=== PATIENT | female | born 1990 | race African-American/Black ===

== ENCOUNTER 2017-03-09 11:14 | Emergency (ER) | payer OTHER ==
[~2017-03-09 11:14] MED LIST: AZIT250T PO; GUAI118L13 PO; IBUP200C PO; MULT-107 PO
[2017-03-09 12:24] VITALS: BP 127/95
--- NOTE | 2017-03-09 12:40 | RAD ---
Indication injury, pain. AP oblique and lateral views of the right foot were obtained. Some soft tissue swelling over the dorsum of the foot is noted. No acute bony finding is seen
--- NOTE | 2017-03-09 12:47 | PHYS DOC ---
General Chief Complaint: FOOT INJURY PAIN Stated Complaint: SWOLLEN FOOT Time Seen by MD: 11:16 Source: patient Exam Limitations: no limitations Problems: History of Present Illness Initial Comments Pt is 26/F to ED with two complaints. Pt states 2 days ago she accidentally dropped a hand weight to dorsal right foot. States she's had pain/swelling, ambulatory no numbness/tingling/weakness/ radiating sx. Pt also has small tender "pimple" right lateral neck, her son here as well with MRSA skin infection. No fever/chills/n/v/d/cp/sob Td UTD. Onset: other (2 days) Severity: moderate Pain/Injury Location: right foot Method of Injury: direct blow Modifying Factors: worse with jarring, worse with movement, improves with rest Allergies: Coded Allergies: No Known Drug Allergies (Unverified , 12/05/13) Past Medical History Medical History: no pertinent history Surgical History: noncontributory, other Social History Smoker: non-smoker Alcohol: none Drugs: none Review of Systems Constitutional: denies diaphoresis, denies fever, denies malaise Respiratory: denies cough, denies shortness of breath Cardiovascular: denies chest pain, denies syncope Gastrointestinal: denies diarrhea, denies nausea, denies vomiting Genitourinary: denies dysuria, denies frequency, denies hematuria Musculoskeletal: see HPI Skin: see HPI Psychiatric/Neurological: denies headache, denies numbness, denies paresthesia Physical Exam General Appearance: no apparent distress HEENT: normal ENT inspection Neck: supple (small 0.5cm tender "pimple" c/w early MRSA) Cardiovascular/Respiratory: normal peripheral pulses, no respiratory distress Back: no CVA tenderness, no vertebral tenderness Feet: right foot other (TTP/bruising some soft tissue swelling dorsal mid foot no palpable bony deformity no skin breaks) Neurologic/Tendon: normal sensation, normal motor functions, normal tendon functions, responds to pain, no evidence tendon injury Psychiatric: alert, oriented x 3 Skin: normal color, warm/dry (neck lesion as above) Orders, Labs, Meds PATIENT: KADE FLORES ACCOUNT: [id number] : 1990 LOCATION: ER AGE: 26 SEX: F EXAM STATUS: REG ER ORD. PHYSICIAN: SUSANNE HELTON DO REASON: trauma/pain PROCEDURE: FOOT RIGHT 3V Indication injury, pain. AP oblique and lateral views of the right foot were obtained. Some soft tissue swelling over the dorsum of the foot is noted. No acute bony finding is seen DICTATED AND SIGNED BY: YFN ETIENNE MD DATE: 03/09/17 1234 CC: Tirso CRAWFORD MD; SUSANNE HELTON DO ~ Departure Time of Disposition: 12:51 Disposition: 01 HOME, SELF-CARE Diagnosis: Right foot contusion, MRSA Condition: GOOD Patient Instructions: MRSA Overview, RICE - Routine Care for Injuries, Easy-to- Read Additional Instructions: Wear post-op shoe as needed for comfort. RICE, see handout. Rx: tylenol #3 (15), bactrim ds, bactroban OTC ibuprofen for baseline pain. Take meds with food. Follow up with your doctor in 1-2 weeks for recheck. Return to ED with new or changing symptoms. SUSANNE HELTON DO Mar 09, 2017 12:47
[2017-03-09] MEDS ORDERED: ACET-704 PO (12:55)
[2017-03-09] MEDS ORDERED: MUPI15CR TP (12:55)
[2017-03-09] MEDS ORDERED: SULF1TAB24 PO (12:55)
== END 2017-03-09 13:02 | disposition home or self-care (01) ==
LOC: ER 11:19
DX: S90.31XA Contusion of right foot, initial encounter (principal); A49.02 Methicillin resistant Staphylococcus aureus infection, unspecified site; W20.8XXA Other cause of strike by thrown, projected or falling object, initial encounter; Y93.89 Activity, other specified; Y99.8 Other external cause status; Y92.89 Other specified places as the place of occurrence of the external cause
CPT/HCPCS: 73630; 99284

== ENCOUNTER 2017-06-16 07:26 | Emergency (ER) | payer OTHER ==
[~2017-06-16] VITALS: Ht 170.2 cm; Wt 99.8 kg
[~2017-06-16 07:26] MED LIST changes: +ACET-704 PO; -IBUP200C PO; +IBUP200C6 PO; +MUPI15CR TP; +SULF1TAB24 PO
[2017-06-16] MEDS ORDERED: VANCOMYCIN PER PHARMACY MC PRN (07:45)
[2017-06-16] MEDS ORDERED: PIP/TAZO PER PHARMACY MC PRN (07:45)
[2017-06-16 08:05] LABS: BASO % 0 % (0-3); EOS # 0.1 x10^3/uL (0.0-0.7); EOS % 1 % (0-3); HEMATOCRIT 34.4 % (36.0-47.0); HEMOGLOBIN 11.2 g/dL (12.0-15.5); LYMPH # 1.4 x10^3/uL (1.0-4.8); LYMPH % 11 % (24-48); MEAN CORPUSCULAR HEMOGLOBIN 27 pg (25-35); MEAN CORPUSCULAR HGB CONC 33 g/dL (31-37); MEAN CORPUSCULAR VOLUME 84 fL (79-100); MONO # 1.3 x10^3/uL (0.0-1.1); MONO % 10 % (0-9); NEUT # 9.7 x10^3uL (1.8-7.7); NEUT % 78 % (31-73); PLATELET COUNT 297 x10^3/uL (140-400); RED BLOOD COUNT 4.11 x10^6/uL (3.50-5.40); RED CELL DISTRIBUTION WIDTH 14.2 % (11.5-14.5); WHITE BLOOD COUNT 12.4 x10^3/uL (4.0-11.0)
--- NOTE | 2017-06-16 08:10 | PHYS DOC ---
Past History Past Medical History: No Pertinent History Past Surgical History: Smoking: Cigarettes Alcohol Use: None Drug Use: None Adult General Chief Complaint Chief Complaint: TOOTH ACHE OR PAIN HPI HPI 18-year-old female presenting to the emergency department with right sided jaw swelling and pain over the past 3 or 4 days. She describes the pain as a throbbing constant pain that is worse when she opens her mouth and associated with swelling. She denies any fevers at home. She denies any other symptoms. Review of systems is negative for chest pain shortness of breath fevers chills nausea vomiting. All other review of systems is negative unless otherwise noted in history of present illness. ED course: 18-year-old female presenting to the emergency department with swelling and jaw pain on the right. He has vital signs afebrile with mild tachycardia otherwise chronic hypertension present. Pertinent physical exam shows the patient had significant swelling on the right side of the jaw including the submandibular region. She has mild elevation of the tongue. She is swallowing her secretions without difficulty in the examination room room and is without stridor. She does have trismus on opening of her mouth. Otherwise the remainder the exam is unremarkable. I discussed the case with Dr. Carver our oral maxillofacial surgeon. The patient was then transferred to [facility] for admission for IV antibiotics and surgical intervention. Review of Systems Review of Systems See above Current Medications Current Medications Current Medications Medications (Trade) Dose Ordered Sig/Sedrick Start Time Stop Time Status Last Admin Dose Admin Ampicillin Sodium/ Sulbactam Sodium 3 gm/Sodium Chloride 100 ml @ 200 mls/hr 1X ONCE 06/16/17 08:00 06/16/17 08:29 UNV Dexamethasone Sodium Phosphate (Decadron) 10 mg 1X ONCE 06/16/17 08:15 06/16/17 08:16 UNV Piperacillin Sod/ Tazobactam Sod (Zosyn Per Pharmacy) 1 each PRN DAILY PRN 06/16/17 07:45 06/16/17 08:03 DC Piperacillin Sod/ Tazobactam Sod 4.5 gm/Sodium Chloride 50 ml @ 100 mls/hr 1X ONCE 06/16/17 08:15 06/16/17 08:44 Cancel Vancomycin HCl (Vanco Per Pharmacy) 1 each PRN DAILY PRN 06/16/17 07:45 06/16/17 08:03 DC Vancomycin HCl 2 gm/Sodium Chloride 500 ml @ 250 mls/hr 1X ONCE 06/16/17 08:30 06/16/17 10:29 Cancel Allergies Allergies Allergies Coded Allergies Type Severity Reaction Last Updated Verified No Known Drug Allergies 12/05/13 No Physical Exam Physical Exam Constitutional: Well developed, well nourished, breathing comfortably. able to tolerate secretions. HENT: Normocephalic, atraumatic, bilateral external ears normal, oropharynx moist, no oral exudates, nose normal. Eyes: PERRLA, EOMI, conjunctiva normal, no discharge. [] Neck: Normal range of motion. Cardiovascular:Heart rate regular rhythm, no murmur [] Lungs & Thorax: Bilateral breath sounds clear to auscultation [] Abdomen: Bowel sounds normal, soft, no tenderness, no masses, no pulsatile masses. [] Skin: Warm, dry, no erythema, no rash. [] Back: No tenderness, no CVA tenderness. [] Extremities: No tenderness, no cyanosis, no clubbing, ROM intact, no edema. [] Neurologic: Alert and oriented X 3, normal motor function, normal sensory function, no focal deficits noted. [] Psychologic: Affect normal, judgement normal, mood normal. [] Current Patient Data Vital Signs Vital Signs Date Time Temp Pulse Resp B/P (MAP) Pulse Ox O2 Delivery O2 Flow Rate FiO2 06/16/17 07:47 99.1 98 18 98 Room Air EKG EKG [] Radiology/Procedures Radiology/Procedures [] Course & Med Decision Making Course & Med Decision Making Pertinent Labs and Imaging studies reviewed. (See chart for details) [] Dragon Disclaimer Dragon Disclaimer This chart was dictated in whole or in part using Voice Recognition software in a busy, high-work load, and often noisy Emergency Department environment. It may contain unintended and wholly unrecognized errors or omissions. Departure Departure: Impression: Primary Impression: Dental abscess Disposition: ADMITTED INPATIENT Admitting Physician: Other (termulo) Condition: STABLE Referrals: Tirso CRAWFORD MD (PCP) ALEXA UPTON MD Jun 16, 2017 08:10
[2017-06-16 08:11] LABS: PREG TEST PT QUAL NEGATIVE (NEG)
[2017-06-16 08:15] LABS: ALBUMIN 3.3 g/dL (3.4-5.0); CALCIUM 8.9 mg/dL (8.5-10.1); CREATININE 0.7 mg/dL (0.6-1.0); DIRECT BILIRUBIN 0.1 mg/dL (0.0-0.2); GFR 120.6; TOTAL BILIRUBIN 0.4 mg/dL (0.2-1.0); TOTAL PROTEIN 7.9 g/dL (6.4-8.2)
[2017-06-16] MEDS ORDERED: PIPERACILLIN/TAZOBACTAM 4.5 GM in IV NORMAL SALINE 50ML 50 ML IV ONE (08:15)
[2017-06-16] MEDS ORDERED: AMPICILLIN/SULBACTAM 3 GM in IV NORMAL SALINE 100ML 100 ML IV ONE (08:15)
[2017-06-16] MEDS ORDERED: IV NORMAL SALINE 500ML 500 ML ONE (08:18)
[2017-06-16] MEDS ORDERED: HYDROmorphone PF 1 MG/ML DISP.SYRIN IV ONE (08:30)
[2017-06-16] MEDS ORDERED: ONDANSETRON PF 4 MG/2 ML VIAL. IV ONE (08:30)
[2017-06-16] MEDS ORDERED: DEXAMETHASONE SOD PHOS 10 MG/ML VIAL IV ONE (08:30)
[2017-06-16] MEDS ORDERED: VANCOMYCIN 2 GM in IV NORMAL SALINE 500ML 500 ML IV ONE (08:30)
[2017-06-16] MEDS ORDERED: POTASSIUM CHLORIDE 20MEQ 100 ML IV ONE (08:30)
[2017-06-16] MEDS ORDERED: IV NORMAL SALINE 500ML 500 ML IV ONE (08:30)
[2017-06-16] MEDS ORDERED: IOHEXOL 300 MG/ML 75 ML VIAL. IV ONE (09:00)
[2017-06-16] MEDS: HYDROmorphone PF 1 MG/ML DISP.SYRIN IV PRN ×3 (09:07→10:40)
--- NOTE | 2017-06-16 09:44 | RAD ---
CT of the neck with contrast, 06/16/2017: History: Right-sided swelling, possible dental abscess Multidetector CT imaging was performed following an IV bolus injection of iodinated contrast material. There are numerous dental caries present bilaterally. There are prominent periapical lucencies related to several of these teeth bilaterally compatible with periapical infection. Artifacts arising from dental fillings partially degrade image quality at the level of mouth. There is extensive subcutaneous edema in the right lower cheek and submandibular regions, right greater than left. There are mildly prominent submandibular lymph nodes, more so on the right. There is an ill-defined area of decreased density adjacent to the medial aspect of the right mandible posteriorly extending inferiorly and posteriorly at the right mandibular angle. This process measures approximately 1 x 1.5 x 2.5 cm. There is a gas bubble within this process. The findings are compatible with a abscess, presumably dental related. There is mild upper cervical adenopathy on the right with the largest node measuring 15 x 25 mm. The parotid glands show no intrinsic abnormality. No airway narrowing is seen. The laryngeal region is unremarkable. The thyroid gland shows no abnormality. IMPRESSION: 1. Severe dental disease. 2. An ill-defined fluid collection at the angle of the mandible on the right suggests a dental related abscess with moderate adjacent subcutaneous edema in the right cheek and submandibular regions and mild right upper cervical adenopathy. PQRS Compliance Statement: One or more of the following individualized dose reduction techniques were utilized for this examination: 1. Automated exposure control 2. Adjustment of the mA and/or kV according to patient size 3. Use of iterative reconstruction technique
--- NOTE | 2017-06-16 09:46 | PDOC1 ---
History and Physicial CC/HPI 26 yof presents with 2 day swelling of right neck with complaint of pain from wisdom tooth that fractured PMH Unremarkable Meds: MVI daily All: NKDA SH denies drug/tob/alcohol use PE/ EOMI B PERRLA 2mm NC/AT PAMELA 18mm FROM tongue ++Tenderness FOM on right MP III ++ tenderness right neck edema and induration 6x6cm grossly carious multiple teeth, # 30, 32 occlusion stable repeatable RAD CT Neck demonstrates approximately 3cm fluid collection right inf mandible and medial mandible with soft tissue changes associated A/P 26 yof with right neck / lateral pharyngeal / right submandibular / massticator space infection appears to be likely associated with carious and fractured teeth # 30 & 32 Plan admit to hospitalist to assist with inpatient management and transfer to [facility] and book for OR tonight for percutaneous drainage and extraction of 30 & 32 Keep NPO until after surgery IV Unasyn for ABX coverage is preference Problems: (1) Dental abscess CARD,NEERU Cabrera DMD Jun 16, 2017 09:46
[2017-06-16] MEDS ORDERED: IV NORMAL SALINE 1,000ML 1,000 ML IV ONE (10:30)
[2017-06-16 10:52] VITALS: BP 141/93
== END 2017-06-16 11:19 | disposition other institution (70) ==
LOC: ER 07:26
DX: K04.7 Periapical abscess without sinus (principal); I10 Essential (primary) hypertension; F17.210 Nicotine dependence, cigarettes, uncomplicated
CPT/HCPCS: 36415; 70491; 80048; 80076; 83605; 83690; 84703; 85027; 96361; 96365; 96375; 96376; 99285; J0295; J1100; J1170; J2405; J3480; J7040; J7030

== ENCOUNTER 2018-05-12 00:55 | Emergency (ER) | payer OTHER ==
[~2018-05-12] VITALS: Ht 149.9 cm; Wt 92.6 kg
[2018-05-12 01:38] VITALS: BP 131/93
[2018-05-12] MEDS ORDERED: OXYMETAZOLINE 0.05% NASAL SPRAY 15ML BOTTLE. NS ONE (02:00)
--- NOTE | 2018-05-12 04:12 | ED.ADGEN ---
Past History Past Medical History: No Pertinent History Past Surgical History: Smoking: Cigarettes Alcohol Use: None Drug Use: None Adult General Chief Complaint Chief Complaint Dizziness HPI HPI Patient is a 27-year-old Afro-[place] female presents with dizziness, nasal congestion, cough rhinorrhea while at work. 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 Patient and proceeded to go to the break room and rest and increase fluids. She was instructed by her coworkers go to the ED to be evaluated. Symptoms resolved prior to ED arrival. No headache, palpitation, chest pain, shortness of breath. Does report nasal congestion, rhinorrhea, difficulty breathing. Nasal passages. No medications or therapy sticking prior to ED arrival., Patient's initial 2 blood pressure readings were elevated. Patient feeling less anxious prior to discharge with improved breathing. Patient has not seen a PCP in a number of years. Patient is not currently sexually active and denies possibility of .[] Review of Systems Review of Systems ROS as per HPI. ] All other systems were reviewed and found to be within normal limits, except as documented in this note. Current Medications Current Medications Current Medications Medications (Trade) Dose Ordered Sig/Sedrick Start Time Stop Time Status Last Admin Dose Admin Oxymetazoline HCl (Afrin) 2 spray 1X ONCE 05/12/18 02:00 05/12/18 02:00 DC 05/12/18 01:34 2 SPRAY Allergies Allergies Allergies Coded Allergies Type Severity Reaction Last Updated Verified No Known Drug Allergies 12/05/13 No Physical Exam Physical Exam Constitutional: Well developed, well nourished, no acute distress, non-toxic appearance. [] HENT: Normocephalic, atraumatic, bilateral external ears normal, oropharynx moist, no oral exudates, nose was swollen, 2 minutes, nasal passages, clear rhinorrhea, and no facial tenderness. [] Eyes: PERRLA, EOMI, conjunctiva normal, no discharge. [] Neck: Normal range of motion, no tenderness, supple, no stridor. [] Cardiovascular:Heart rate regular rhythm, no murmur [] Lungs & Thorax: Bilateral breath sounds clear to auscultation [] Abdomen: Bowel sounds normal, soft, no tenderness. [] Skin: Warm, dry, no erythema, no rash. [] Back: No tenderness, no CVA tenderness. [] Extremities: No tenderness, no cyanosis, no clubbing, ROM intact, no edema. [] Neurologic: Alert and oriented X 3, normal motor function, normal sensory function, no focal deficits noted. [] Psychologic: Affect normal, judgement normal, mood normal. [] Current Patient Data Vital Signs Vital Signs Date Time Temp Pulse Resp B/P (MAP) Pulse Ox O2 Delivery O2 Flow Rate FiO2 05/12/18 01:38 87 16 131/93 (106) 100 Room Air 05/12/18 01:00 97.5 Lab Results Laboratory Tests Test 05/12/18 01:31 Glucose (Fingerstick) 97 mg/dL (70-99) EKG EKG [] Radiology/Procedures Radiology/Procedures [] Course & Med Decision Making Course & Med Decision Making Pertinent Labs and Imaging studies reviewed. (See chart for details) [Blood pressure improved without treatment. Patient has upper respiratory tract infectio symptoms without evidence of more serious illness. Commend supportive care with PCP follow-up for further blood pressure monitoring. Return precautions reviewed.] Final Impression Final Impression [1. URI 2. dizziness] Dragon Disclaimer Dragon Disclaimer This electronic medical record was generated, in whole or in part, using a voice recognition dictation system. DYLAN BOWENS DO May 12, 2018 04:12
== END 2018-05-12 01:59 | disposition home or self-care (01) ==
LOC: ER 00:55
DX: J06.9 Acute upper respiratory infection, unspecified (principal); R42 Dizziness and giddiness; F17.210 Nicotine dependence, cigarettes, uncomplicated
CPT/HCPCS: 82947; 99283

== ENCOUNTER 2019-05-25 17:40 | Emergency (ER) | payer SELFPAY ==
[~2019-05-25] VITALS: Ht 149.9 cm; Wt 100.6 kg
[~2019-05-25 17:40] MED LIST changes: +IBUP-1390 PO; -IBUP200C6 PO
--- NOTE | 2019-05-25 17:57 | ED.ADGEN ---
Past History Past Medical History: No Pertinent History, Ovarian Cyst, UTI Past Surgical History: Smoking: Cigarettes Alcohol Use: None Drug Use: None Adult General Chief Complaint Chief Complaint ".. I got this Lt flank and lower abdomen pain.. I am 31 weeks ... I just felt like I need to get checked out... ".." I was hoping to get something other than tylenol for my pain so.. I could complete my work shifts... " [facility] HPI Patient is a 28 year old female who presents with above hx and complaints left flank and lower abdomen pain. Patient reportedly 31 weeks . This is her fifth . She has had vaginal and C-sections for the last births. No history of STDs. No history of trauma. Patient does take a vitamin. Last ultrasound was at 8 weeks. Patient normally follows Dr. Gates. No history of immunosuppression. No history of travel. No vaginal discharge or bleeding. Has had a normal stool. No intake bad food. No complaints of dysuria. No History of renal stones. No history of colitis or inflammatory bowel disorders. Review of Systems Review of Systems Constitutional: Denies fever or chills [] Eyes: Denies change in visual acuity, redness, or eye pain [] HENT: Denies nasal congestion or sore throat [] Respiratory: Denies cough or shortness of breath [] Cardiovascular: No additional information not addressed in HPI [] GI: Complaints of left flank abdominal pain, nausea,. Denies vomiting, bloody stools or diarrhea [] : Denies dysuria or hematuria [] Musculoskeletal: Denies back pain or joint pain [] Integument: Denies rash or skin lesions [] Neurologic: Denies headache, focal weakness or sensory changes [] Endocrine: Denies polyuria or polydipsia [] All other systems were reviewed and found to be within normal limits, except as documented in this note. Family History Family History Noncontributory Current Medications Current Medications Current Medications Medications (Trade) Dose Ordered Sig/Sedrick Start Time Stop Time Status Last Admin Dose Admin Acetaminophen (Tylenol) 1,000 mg 1X ONCE 05/25/19 18:30 05/25/19 18:35 DC 05/25/19 18:31 1,000 MG Lactated Ringer's 1,000 ml @ 1,000 mls/hr Q1H 05/25/19 18:00 05/25/19 18:59 DC 05/25/19 18:31 1,000 MLS/HR Oxycodone/ Acetaminophen (Percocet 5/325) 2 tab 1X ONCE 05/25/19 18:00 05/25/19 18:09 DC Potassium Chloride (KCl Oral Soln) 20 meq STK-MED ONCE 05/25/19 19:46 05/25/19 19:47 DC Allergies Allergies Allergies Coded Allergies Type Severity Reaction Last Updated Verified No Known Drug Allergies 12/05/13 No Physical Exam Physical Exam Constitutional: Mild distress, non-toxic appearance. [] HENT: Normocephalic, atraumatic, bilateral external ears normal, oropharynx moist, no oral exudates, nose normal. [] Eyes: PERRLA, EOMI, conjunctiva normal, no discharge. [] Neck: Normal range of motion, no tenderness, supple, no stridor. [] Cardiovascular:Heart rate regular rhythm, no murmur [] Lungs & Thorax: Bilateral breath sounds clear to auscultation [] Abdomen: Bowel sounds normal, soft, , no masses, no pulsatile masses. [] Gravid. heart rate at approximately 150. Mild left flank tenderness. Vaginal exam office is closed. No bleeding. No cervical motion tenderness. No significant effacement. Old surgery scar. Skin: Warm, dry, no erythema, no rash. [] Back: No tenderness, no CVA tenderness. [] Extremities: No tenderness, no cyanosis, no clubbing, ROM intact, no edema. [] Neurologic: Alert and oriented X 3, normal motor function, normal sensory function, no focal deficits noted. []DTRs are +2 at patella. Psychologic: Affect anxious, judgement normal, mood normal. [] Current Patient Data Vital Signs Vital Signs Date Time Temp Pulse Resp B/P (MAP) Pulse Ox O2 Delivery O2 Flow Rate FiO2 05/25/19 20:00 78 20 105/50 (68) 100 Room Air 05/25/19 17:40 98.4 Lab Results Laboratory Tests Test 05/25/19 17:46 05/25/19 17:58 Urine Collection Type Unknown Urine Color Cristina Urine Clarity Hazy Urine pH 7.0 Urine Specific [place] 1.015 Urine Protein Trace (NEG-TRACE) Urine Glucose (UA) Neg mg/dL (NEG) Urine Ketones (Stick) Neg mg/dL (NEG) Urine Blood Large (NEG) Urine Nitrite Neg (NEG) Urine Bilirubin Neg (NEG) Urine Urobilinogen Dipstick 2 mg/dL (0.2 mg/dL) Urine Leukocyte Esterase Neg (NEG) Urine RBC 6-10 /HPF (0-2) Urine WBC Occ /HPF (0-4) Urine Squamous Epithelial Cells Occ /LPF Urine Bacteria Few /HPF (0-FEW) White Blood Count 7.8 x10^3/uL (4.0-11.0) Red Blood Count 3.96 x10^6/uL (3.50-5.40) Hemoglobin 10.4 g/dL (12.0-15.5) L Hematocrit 32.5 % (36.0-47.0) L Mean Corpuscular Volume 82 fL (79-100) Mean Corpuscular Hemoglobin 26 pg (25-35) Mean Corpuscular Hemoglobin Concent 32 g/dL (31-37) Red Cell Distribution Width 15.2 % (11.5-14.5) H Platelet Count 256 x10^3/uL (140-400) Neutrophils (%) (Auto) 74 % (31-73) H Lymphocytes (%) (Auto) 16 % (24-48) L Monocytes (%) (Auto) 9 % (0-9) Eosinophils (%) (Auto) 1 % (0-3) Basophils (%) (Auto) 0 % (0-3) Neutrophils # (Auto) 5.7 x10^3uL (1.8-7.7) Lymphocytes # (Auto) 1.3 x10^3/uL (1.0-4.8) Monocytes # (Auto) 0.7 x10^3/uL (0.0-1.1) Eosinophils # (Auto) 0.1 x10^3/uL (0.0-0.7) Basophils # (Auto) 0.0 x10^3/uL (0.0-0.2) Prothrombin Time 9.3 SEC (9.4-11.4) L Prothrombin Time INR 0.9 (0.9-1.1) PTT 27 SEC (23-33) Maternal Serum HCG Beta Subunit 98364 mIU/mL (0-6) H Sodium Level 137 mmol/L (136-145) Potassium Level 3.1 mmol/L (3.5-5.1) L Chloride Level 103 mmol/L (98-107) Carbon Dioxide Level 25 mmol/L (21-32) Anion Gap 9 (6-14) Blood Urea Nitrogen 5 mg/dL (7-20) L Creatinine 0.6 mg/dL (0.6-1.0) Estimated GFR (Cockcroft-Gault) 142.0 Glucose Level 83 mg/dL (70-99) Calcium Level 8.8 mg/dL (8.5-10.1) Total Bilirubin 0.4 mg/dL (0.2-1.0) Direct Bilirubin 0.1 mg/dL (0.0-0.2) Aspartate Amino Transferase (AST) 27 U/L (15-37) Alanine Aminotransferase (ALT) 37 U/L (14-59) Alkaline Phosphatase 112 U/L (46-116) Total Protein 7.1 g/dL (6.4-8.2) Albumin 2.8 g/dL (3.4-5.0) L Lipase 81 U/L (73-393) Urine Opiates Screen Neg (NEG) Urine Methadone Screen Neg (NEG) Urine Barbiturates Neg (NEG) Urine Phencyclidine Screen Neg (NEG) Urine Amphetamine/Methamphetamine Neg (NEG) Urine Benzodiazepines Screen Neg (NEG) Urine Cocaine Screen Neg (NEG) Urine Cannabinoids Screen Neg (NEG) Urine Ethyl Alcohol Neg (NEG) Microbiology 05/25/19 Wet Prep - Final, Complete Laboratory Tests Test 05/25/19 17:46 05/25/19 17:58 Urine Collection Type Unknown Urine Color Cristina Urine Clarity Hazy Urine pH 7.0 Urine Specific [place] 1.015 Urine Protein Trace (NEG-TRACE) Urine Glucose (UA) Neg mg/dL (NEG) Urine Ketones (Stick) Neg mg/dL (NEG) Urine Blood Large (NEG) Urine Nitrite Neg (NEG) Urine Bilirubin Neg (NEG) Urine Urobilinogen Dipstick 2 mg/dL (0.2 mg/dL) Urine Leukocyte Esterase Neg (NEG) Urine RBC 6-10 /HPF (0-2) Urine WBC Occ /HPF (0-4) Urine Squamous Epithelial Cells Occ /LPF Urine Bacteria Few /HPF (0-FEW) White Blood Count 7.8 x10^3/uL (4.0-11.0) Red Blood Count 3.96 x10^6/uL (3.50-5.40) Hemoglobin 10.4 g/dL (12.0-15.5) L Hematocrit 32.5 % (36.0-47.0) L Mean Corpuscular Volume 82 fL (79-100) Mean Corpuscular Hemoglobin 26 pg (25-35) Mean Corpuscular Hemoglobin Concent 32 g/dL (31-37) Red Cell Distribution Width 15.2 % (11.5-14.5) H Platelet Count 256 x10^3/uL (140-400) Neutrophils (%) (Auto) 74 % (31-73) H Lymphocytes (%) (Auto) 16 % (24-48) L Monocytes (%) (Auto) 9 % (0-9) Eosinophils (%) (Auto) 1 % (0-3) Basophils (%) (Auto) 0 % (0-3) Neutrophils # (Auto) 5.7 x10^3uL (1.8-7.7) Lymphocytes # (Auto) 1.3 x10^3/uL (1.0-4.8) Monocytes # (Auto) 0.7 x10^3/uL (0.0-1.1) Eosinophils # (Auto) 0.1 x10^3/uL (0.0-0.7) Basophils # (Auto) 0.0 x10^3/uL (0.0-0.2) Prothrombin Time 9.3 SEC (9.4-11.4) L Prothrombin Time INR 0.9 (0.9-1.1) PTT 27 SEC (23-33) Maternal Serum HCG Beta Subunit 25821 mIU/mL (0-6) H Sodium Level 137 mmol/L (136-145) Potassium Level 3.1 mmol/L (3.5-5.1) L Chloride Level 103 mmol/L (98-107) Carbon Dioxide Level 25 mmol/L (21-32) Anion Gap 9 (6-14) Blood Urea Nitrogen 5 mg/dL (7-20) L Creatinine 0.6 mg/dL (0.6-1.0) Estimated GFR (Cockcroft-Gault) 142.0 Glucose Level 83 mg/dL (70-99) Calcium Level 8.8 mg/dL (8.5-10.1) Total Bilirubin 0.4 mg/dL (0.2-1.0) Direct Bilirubin 0.1 mg/dL (0.0-0.2) Aspartate Amino Transferase (AST) 27 U/L (15-37) Alanine Aminotransferase (ALT) 37 U/L (14-59) Alkaline Phosphatase 112 U/L (46-116) Total Protein 7.1 g/dL (6.4-8.2) Albumin 2.8 g/dL (3.4-5.0) L Lipase 81 U/L (73-393) Urine Opiates Screen Neg (NEG) Urine Methadone Screen Neg (NEG) Urine Barbiturates Neg (NEG) Urine Phencyclidine Screen Neg (NEG) Urine Amphetamine/Methamphetamine Neg (NEG) Urine Benzodiazepines Screen Neg (NEG) Urine Cocaine Screen Neg (NEG) Urine Cannabinoids Screen Neg (NEG) Urine Ethyl Alcohol Neg (NEG) Microbiology 05/25/19 Wet Prep - Final, Complete EKG EKG [] Radiology/Procedures Radiology/Procedures [][address] [address] IMAGING REPORT Signed PATIENT: KADE FLORES ACCOUNT: [id number] : 1990 LOCATION: ER AGE: 28 SEX: F EXAM STATUS: REG ER ORD. PHYSICIAN: DEMETRIUS DICKENS MD REASON: 31 weeks with back pain PROCEDURE: PREG MORE THAN OR EQ TO 14 WKS OB ultrasound greater than 14 weeks 05/25/2019 Clinical History: Third trimester . Maternal back pain. Technique: A real-time ultrasound examination of the gravid uterus was performed. Multiple images were obtained. Findings: No previous studies are available for comparison. There is a single living IUP. The fetus is in a cephalic position. cardiac and somatic activity is seen. The heart rate is 141 beats per minutes. Neither maternal ovary is visualized. The placenta is in a posterior position. No abnormality is seen. The amniotic fluid volume is within normal limits. The VINCENZO measures 9.1 cm. The following measurements were obtained: BPD 8.24cm 33 weeks 1 days HC 29.7 cm 32weeks 6 days AC 25.9 cm 30weeks 0 days FL 5.99 cm 31 weeks 1 days The estimated gestational age by ultrasound is 31 weeks 6 days plus or minus a standard deviation of 3 weeks. The estimated date of delivery by ultrasound is 07/21/2019. The estimated weight is 1659 g +/- 246 g (3 lbs. 11 oz.). No abnormality is seen. Specifically the stomach, bladder, kidneys, 3 vessel cord and cord insertion, four-chamber heart, and visualized spine are within normal limits. Impression: Single living IUP with an estimated gestational age by ultrasound of 31 weeks 6 days +/- a standard deviation of 3 weeks. Electronically signed by: Jose Maria Osei MD (05/25/2019 8:09 PM) [facility] DICTATED AND SIGNED BY: JOSE MARIA OSEI MD DATE: 05/25/192008 CC: DEMETRIUS DICKENS MD; PCP,UNKNOWN ~ Course & Med Decision Making Course & Med Decision Making Pertinent Labs and Imaging studies reviewed. (See chart for details) Pt. to push fluids. Follow up pending cultures. Tylenol for pain. Must follow up. Flank pain may be renal colic. Use Metrogel x 3 nights. [] Final Impression Final Impression 1. IUP- 31 weeks 6 days 2. Hematuria 3. Bacterial vaginosis 4. Blood type is O+ 5. Mild anemia hemoglobin 10.4 6. BHCG 10,012 7. EDC= 07-23-2019 Christine Disclaimer Christine Disclaimer This electronic medical record was generated, in whole or in part, using a voice recognition dictation system. Discharge Summary Visit Information Final Diagnosis Problems Medical Problems: (1) Pain in the abdomen Status: Acute Brief Hospital Course Allergies Allergies Coded Allergies Type Severity Reaction Last Updated Verified No Known Drug Allergies 12/05/13 No Vital Signs Vital Signs Date Time Temp Pulse Resp B/P (MAP) Pulse Ox O2 Delivery O2 Flow Rate FiO2 05/25/19 20:00 78 20 105/50 (68) 100 Room Air 05/25/19 17:40 98.4 Lab Results Laboratory Tests Test 05/25/19 17:46 05/25/19 17:58 Urine Collection Type Unknown Urine Color Cristina Urine Clarity Hazy Urine pH 7.0 Urine Specific [place] 1.015 Urine Protein Trace (NEG-TRACE) Urine Glucose (UA) Neg mg/dL (NEG) Urine Ketones (Stick) Neg mg/dL (NEG) Urine Blood Large (NEG) Urine Nitrite Neg (NEG) Urine Bilirubin Neg (NEG) Urine Urobilinogen Dipstick 2 mg/dL (0.2 mg/dL) Urine Leukocyte Esterase Neg (NEG) Urine RBC 6-10 /HPF (0-2) Urine WBC Occ /HPF (0-4) Urine Squamous Epithelial Cells Occ /LPF Urine Bacteria Few /HPF (0-FEW) White Blood Count 7.8 x10^3/uL (4.0-11.0) Red Blood Count 3.96 x10^6/uL (3.50-5.40) Hemoglobin 10.4 g/dL (12.0-15.5) Hematocrit 32.5 % (36.0-47.0) Mean Corpuscular Volume 82 fL (79-100) Mean Corpuscular Hemoglobin 26 pg (25-35) Mean Corpuscular Hemoglobin Concent 32 g/dL (31-37) Red Cell Distribution Width 15.2 % (11.5-14.5) Platelet Count 256 x10^3/uL (140-400) Neutrophils (%) (Auto) 74 % (31-73) Lymphocytes (%) (Auto) 16 % (24-48) Monocytes (%) (Auto) 9 % (0-9) Eosinophils (%) (Auto) 1 % (0-3) Basophils (%) (Auto) 0 % (0-3) Neutrophils # (Auto) 5.7 x10^3uL (1.8-7.7) Lymphocytes # (Auto) 1.3 x10^3/uL (1.0-4.8) Monocytes # (Auto) 0.7 x10^3/uL (0.0-1.1) Eosinophils # (Auto) 0.1 x10^3/uL (0.0-0.7) Basophils # (Auto) 0.0 x10^3/uL (0.0-0.2) Prothrombin Time 9.3 SEC (9.4-11.4) Prothromb Time International Ratio 0.9 (0.9-1.1) Activated Partial Thromboplast Time 27 SEC (23-33) Maternal Serum HCG Beta Subunit 37316 mIU/mL (0-6) Sodium Level 137 mmol/L (136-145) Potassium Level 3.1 mmol/L (3.5-5.1) Chloride Level 103 mmol/L (98-107) Carbon Dioxide Level 25 mmol/L (21-32) Anion Gap 9 (6-14) Blood Urea Nitrogen 5 mg/dL (7-20) Creatinine 0.6 mg/dL (0.6-1.0) Estimated GFR (Cockcroft-Gault) 142.0 Glucose Level 83 mg/dL (70-99) Calcium Level 8.8 mg/dL (8.5-10.1) Total Bilirubin 0.4 mg/dL (0.2-1.0) Direct Bilirubin 0.1 mg/dL (0.0-0.2) Aspartate Amino Transf (AST/SGOT) 27 U/L (15-37) Alanine Aminotransferase (ALT/SGPT) 37 U/L (14-59) Alkaline Phosphatase 112 U/L (46-116) Total Protein 7.1 g/dL (6.4-8.2) Albumin 2.8 g/dL (3.4-5.0) Lipase 81 U/L (73-393) Urine Opiates Screen Neg (NEG) Urine Methadone Screen Neg (NEG) Urine Barbiturates Neg (NEG) Urine Phencyclidine Screen Neg (NEG) Urine Amphetamine/Methamphetamine Neg (NEG) Urine Benzodiazepines Screen Neg (NEG) Urine Cocaine Screen Neg (NEG) Urine Cannabinoids Screen Neg (NEG) Urine Ethyl Alcohol Neg (NEG) Brief Hospital Course Ms. Flores is a 28 old female who presented with abdomen and Lt. flank pain. 31 weeks gravid. Discharge Information Condition at Discharge: Improved, Stable Disposition/Orders: D/C to Home Dischare Medications Current Medications Lactated Ringer's 1,000 ml @ 1,000 mls/hr Q1H IV Last administered on 05/25/19at 18:31; Admin Dose 1,000 MLS/HR; Start 05/25/19 at 18:00; Stop 05/25/19 at 18:59; Status DC Oxycodone/ Acetaminophen (Percocet 5/325) 2 tab 1X ONCE PO ; Start 05/25/19 at 18:00; Stop 05/25/19 at 18:09; Status DC Acetaminophen (Tylenol) 1,000 mg 1X ONCE PO ; Start 05/25/19 at 18:30; Stop 05/25/19 at 18:31; Status DC Acetaminophen (Tylenol) 1,000 mg 1X ONCE PO Last administered on 05/25/19at 18:31; Admin Dose 1,000 MG; Start 05/25/19 at 18:30; Stop 05/25/19 at 18:35; Status DC Potassium Chloride (KCl Oral Soln) 40 meq 1X ONCE PO Last administered on 05/25/19at 19:49; Admin Dose 40 MEQ; Start 05/25/19 at 19:45; Stop 05/25/19 at 19:47; Status DC Potassium Chloride (KCl Oral Soln) 20 meq STK-MED ONCE .ROUTE ; Start 05/25/19 at 19:46; Stop 05/25/19 at 19:47; Status DC Active Scripts Active Zofran (Ondansetron Hcl) 8 Mg Tablet 8 Mg PO QID Metrogel-Vaginal (Metronidazole) 70 Gm Gel.w.appl 1 Appful VG QHS Percocet 5-325 Mg Tablet (Oxycodone Hcl/Acetaminophen) 1 Each Tablet 1 Tab PO PRN Q6HRS PRN Tylenol With Codeine #3 Tablet (Acetaminophen With Codeine) 1 Each Tablet 1 Tab PO Q6HRS Bactroban (Mupirocin Calcium) 15 Gm Cream..g. 1 Karlie TP BID 10 Days Bactrim Ds Tablet (Sulfamethoxazole/Trimethoprim) 1 Each Tablet 1 Each PO BID Zithromax (Azithromycin) 250 Mg Tablet 1 Pkg PO UD Guaifenesin-Codeine Syrup (Guaifenesin/Codeine Phosphate) 118 Ml Liquid 5 Ml PO Q6HRS Reported Hair Vitamin (Multivitamins With Iron) 1 Each Tablet 2 Each PO DAILY Ibuprofen 200 Mg Capsule 800 Mg PO Q8HRS PRN Dragon Disclaimer This chart was dictated in whole or in part using Voice Recognition software in a busy, high-work load, and often noisy Emergency Department environment. It may contain unintended and wholly unrecognized errors or omissions. DEMETRIUS DICKENS MD May 25, 2019 17:57
[2019-05-25] MEDS ORDERED: IV RINGERS SOLUTION,LACTATED 1,000 ML IV SCH (18:00)
[2019-05-25] MEDS ORDERED: oxyCODONE/APAP 5/325 1 TAB TABLET PO ONE (18:00)
[2019-05-25 18:20] LABS: BACTERIA,URINE FEW /HPF (0-FEW); BILIRUBIN,URINE NEG (NEG); CLARITY,URINE HAZY; COLOR,URINE AMBER; GLUCOSE,URINE NEG (NEG); NITRITE,URINE NEG (NEG); SQUAMOUS EPITHELIAL CELL,UR OCC /LPF; UROBILINOGEN,URINE 2 mg/dL (0.2 mg/dL); WBC,URINE OCC /HPF (0-4)
[2019-05-25 18:20] LABS: BASO % 0 % (0-3); EOS # 0.1 x10^3/uL (0.0-0.7); EOS % 1 % (0-3); HEMATOCRIT 32.5 % (36.0-47.0); HEMOGLOBIN 10.4 g/dL (12.0-15.5); LYMPH # 1.3 x10^3/uL (1.0-4.8); LYMPH % 16 % (24-48); MEAN CORPUSCULAR HEMOGLOBIN 26 pg (25-35); MEAN CORPUSCULAR HGB CONC 32 g/dL (31-37); MEAN CORPUSCULAR VOLUME 82 fL (79-100); MONO # 0.7 x10^3/uL (0.0-1.1); MONO % 9 % (0-9); NEUT # 5.7 x10^3uL (1.8-7.7); NEUT % 74 % (31-73); PLATELET COUNT 256 x10^3/uL (140-400); RED BLOOD COUNT 3.96 x10^6/uL (3.50-5.40); RED CELL DISTRIBUTION WIDTH 15.2 % (11.5-14.5); WHITE BLOOD COUNT 7.8 x10^3/uL (4.0-11.0)
[2019-05-25 18:23] LABS: AMPHETAMINE/METHAMPHETAMINE NEG (NEG); BARBITURATES NEG (NEG); BENZODIAZEPINES NEG (NEG); CANNABINOIDS NEG (NEG); COCAINE NEG (NEG); METHADONE NEG (NEG); OPIATES NEG (NEG); PHENCYCLIDINE NEG (NEG)
[2019-05-25] MEDS ORDERED: ACETAMINOPHEN 500 MG TABLET PO ONE ×2 (18:30)
[2019-05-25 18:35] LABS: ALBUMIN 2.8 g/dL (3.4-5.0); CALCIUM 8.8 mg/dL (8.5-10.1); CREATININE 0.6 mg/dL (0.6-1.0); DIRECT BILIRUBIN 0.1 mg/dL (0.0-0.2); POTASSIUM 3.1 mmol/L (3.5-5.1); TOTAL BILIRUBIN 0.4 mg/dL (0.2-1.0); TOTAL PROTEIN 7.1 g/dL (6.4-8.2)
[2019-05-25] MEDS ORDERED: OXYC1TAB15 PO (19:42)
[2019-05-25] MEDS ORDERED: METR70GE14 VG (19:42)
[2019-05-25] MEDS ORDERED: ONDA8TAB9 PO (19:42)
[2019-05-25] MEDS ORDERED: POTASSIUM CHLORIDE 20 MEQ/15 ML ORAL LIQUID. PO ONE (19:45)
[2019-05-25] MEDS ORDERED: POTASSIUM CHLORIDE 20 MEQ/15 ML ORAL LIQUID. ONE (19:46)
[2019-05-25 20:00] VITALS: BP 105/50
--- NOTE | 2019-05-25 20:11 | RAD ---
OB ultrasound greater than 14 weeks 05/25/2019 Clinical History: Third trimester . Maternal back pain. Technique: A real-time ultrasound examination of the gravid uterus was performed. Multiple images were obtained. Findings: No previous studies are available for comparison. There is a single living IUP. The fetus is in a cephalic position. cardiac and somatic activity is seen. The heart rate is 141 beats per minutes. Neither maternal ovary is visualized. The placenta is in a posterior position. No abnormality is seen. The amniotic fluid volume is within normal limits. The VINCENZO measures 9.1 cm. The following measurements were obtained: BPD 8.24cm 33 weeks 1 days HC 29.7 cm 32weeks 6 days AC 25.9 cm 30weeks 0 days FL 5.99 cm 31 weeks 1 days The estimated gestational age by ultrasound is 31 weeks 6 days plus or minus a standard deviation of 3 weeks. The estimated date of delivery by ultrasound is 07/21/2019. The estimated weight is 1659 g +/- 246 g (3 lbs. 11 oz.). No abnormality is seen. Specifically the stomach, bladder, kidneys, 3 vessel cord and cord insertion, four-chamber heart, and visualized spine are within normal limits. Impression: Single living IUP with an estimated gestational age by ultrasound of 31 weeks 6 days +/- a standard deviation of 3 weeks. Electronically signed by: Jose Maria Osei MD (05/25/2019 8:09 PM) [facility]
[2019-05-29 00:06] LABS: CHLAMYDIA PROBE Negative (Negative)
== END 2019-05-25 20:21 | disposition home or self-care (01) ==
LOC: ER 17:40
DX: O23.593 Infection of other part of genital tract in pregnancy, third trimester (principal); B96.89 Other specified bacterial agents as the cause of diseases classified elsewhere; O99.013 Anemia complicating pregnancy, third trimester; R31.9 Hematuria, unspecified; O99.333 Smoking (tobacco) complicating pregnancy, third trimester; O23.43 Unspecified infection of urinary tract in pregnancy, third trimester; Z3A.31 31 weeks gestation of pregnancy; Z98.890 Other specified postprocedural states; Z79.899 Other long term (current) drug therapy
CPT/HCPCS: 36415; 76805; 80048; 80076; 80307; 81001; 83690; 84443; 84702; 85025; 85610; 85730; 86592; 86703; 86705; 86709; 86803; 86900; 86901; 87340; 87491; 87591; 99285; J7120; Q0111

== ENCOUNTER 2019-06-14 20:01 | Emergency (ER) | payer OTHER ==
[~2019-06-14] VITALS: Ht 149.9 cm; Wt 100.6 kg
[~2019-06-14 20:01] MED LIST changes: +METR70GE14 VG; +ONDA8TAB9 PO; +OXYC1TAB15 PO
[2019-06-14 20:06] VITALS: BP 129/86
[2019-06-14] MEDS ORDERED: ACET-704 PO (20:23)
[2019-06-14] MEDS ORDERED: AMOX500C PO (20:23)
[2019-06-14] MEDS ORDERED: LIDO15SO2 MM (20:23)
--- NOTE | 2019-06-14 20:24 | PHYS DOC ---
Past History Past Medical History: No Pertinent History, Ovarian Cyst, UTI Past Surgical History: Smoking: Cigarettes Alcohol Use: None Drug Use: None Adult General Chief Complaint Chief Complaint: DENTAL PROBLEM HPI HPI Patient is a 28-year-old female who presents with complaint of left-sided dental pain for the last several days. Patient states that she has had some chronic issues with the tooth and states that she had recently been eating when a portion of her left upper molar had broken off. She states that she had been seen for the dentist in the past and states that she was told that they could not do anything with the tooth until she gives . She is 34 weeks at this time. She rates pain as moderate to severe and states that she has had difficulty with sleeping over the last couple of nights due to the pain.[] Review of Systems Review of Systems Constitutional: Denies fever or chills [] HENT: Positive dental pain[] Respiratory: Denies cough or shortness of breath [] Cardiovascular: No additional information not addressed in HPI [] Allergies Allergies Allergies Coded Allergies Type Severity Reaction Last Updated Verified No Known Drug Allergies 12/05/13 No Physical Exam Physical Exam Constitutional: Well developed, well nourished, no acute distress, non-toxic appearance. [] HENT: Normocephalic, atraumatic, the left upper first molar is fractured with caries present. There is mild swelling of gums surrounding tooth. [] Cardiovascular:Heart rate regular rhythm, no murmur [] Lungs & Thorax: Bilateral breath sounds clear to auscultation [] EKG EKG [] Radiology/Procedures Radiology/Procedures [] Course & Med Decision Making Course & Med Decision Making Pertinent Labs and Imaging studies reviewed. (See chart for details) [] Dragon Disclaimer Dragon Disclaimer This electronic medical record was generated, in whole or in part, using a voice recognition dictation system. Departure Departure: Impression: Primary Impression: Pain due to dental caries Disposition: HOME, SELF-CARE Condition: STABLE Referrals: HENRRY STEWART JR, MD (PCP) Patient Instructions: Dental Caries, Dental Injury, Dental Pain Scripts Lidocaine HCl (Lidocaine HCl Viscous) 15 Ml Solution 1 ML MM Q2HR PRN for dental pain, #100 ML Prov: JOSÉ MITCHELL Jr. DO 06/14/19 Amoxicillin (AMOXICILLIN) 500 Mg Capsule 1 CAP PO TID for infection, #30 CAP Prov: JOSÉ MITCHELL Jr. DO 06/14/19 Acetaminophen With Codeine (TYLENOL WITH CODEINE #3 TABLET) 1 Each Tablet 1 TAB PO Q4-6HRS PRN for PAIN, #15 TAB Prov: JOSÉ MITCHELL Jr. DO 06/14/19 JOSÉ MITCHELL Jr. DO Jun 14, 2019 20:24
[2019-06-14] MEDS: ACETAMINOPHEN/CODEINE 300/30MG TABLET PO ONE (20:45)
[2019-06-14] MEDS: AMOXICILLIN 250 MG CAPSULE PO ONE (20:45)
[2019-06-14] MEDS: LIDOCAINE 2% VISCOUS 15 ML SOLUTION. MM ONE (20:46)
== END 2019-06-14 20:57 | disposition home or self-care (01) ==
LOC: ER 20:01
DX: O99.613 Diseases of the digestive system complicating pregnancy, third trimester (principal); K02.9 Dental caries, unspecified; O23.43 Unspecified infection of urinary tract in pregnancy, third trimester; O99.333 Smoking (tobacco) complicating pregnancy, third trimester; Z3A.34 34 weeks gestation of pregnancy
CPT/HCPCS: 99284

== ENCOUNTER 2019-06-19 20:46 | Emergency (ER) | payer OTHER ==
[~2019-06-19] VITALS: Ht 149.9 cm; Wt 98.9 kg
[~2019-06-19 20:46] MED LIST changes: +AMOX500C PO; +LIDO15SO2 MM
[2019-06-19] MEDS ORDERED: IV NORMAL SALINE 500ML 500 ML IV SCH (21:00)
[2019-06-19 21:01] VITALS: BP 141/84
--- NOTE | 2019-06-19 21:03 | PHYS DOC ---
Past History Past Medical History: Ovarian Cyst, UTI Past Surgical History: Smoking: Cigarettes Alcohol Use: None Drug Use: None Adult General HPI HPI Patient is a 28-year-old female presents with vaginal bleeding that started at approximately 3:30 today. Patient urinated and then felt a gush of something come out that was blood-tinged. She has had some spotting since then. She denies any abdominal pain or cramping. Notes that spotting is continuing. No fever. She is approximately 34 weeks . She has a history of previous . Her blood type was noted to be O+ on 05/25/2019. She is -1-0-4[] Review of Systems Review of Systems Constitutional: Denies fever or chills [] Eyes: Denies change in visual acuity, redness, or eye pain [] HENT: Denies nasal congestion or sore throat [] Respiratory: Denies cough or shortness of breath [] Cardiovascular: No chest pain or palpitations GI: Denies abdominal pain, nausea, vomiting, bloody stools or diarrhea [] : Denies dysuria or hematuria, see history of present illness [] Musculoskeletal: Denies back pain or joint pain [] Integument: Denies rash or skin lesions [] Neurologic: Denies headache, focal weakness or sensory changes [] Endocrine: Denies polyuria or polydipsia [] All other systems were reviewed and found to be within normal limits, except as documented in this note. Current Medications Current Medications Current Medications Medications (Trade) Dose Ordered Sig/Sedrick Start Time Stop Time Status Last Admin Dose Admin Sodium Chloride 500 ml @ 500 mls/hr Q1H 06/19/19 21:00 Allergies Allergies Allergies Coded Allergies Type Severity Reaction Last Updated Verified No Known Drug Allergies 12/05/13 No Physical Exam Physical Exam Constitutional: Well developed, well nourished, no acute distress, non-toxic appearance. [] HENT: Normocephalic, atraumatic, bilateral external ears normal, oropharynx moist, no oral exudates, nose normal. [] Eyes: PERRLA, EOMI, conjunctiva normal, no discharge. [] Neck: Normal range of motion, no tenderness, supple, no stridor. [] Cardiovascular:Heart rate regular rhythm, no murmur [] Lungs & Thorax: Bilateral breath sounds clear to auscultation [] Abdomen: Bowel sounds normal, soft, no tenderness, fundus superior to the umbilicus by 2 hands, no pulsatile masses. Pelvic exam performed with coal and ash supervisor, external genitalia: Normal external genitalia, [place]'s, urethra, and Bartholin's. Vaginal vault: No blood or significant fluid in the vault. Cervix: Parous os, no active bleeding, [] Skin: Warm, dry, no erythema, no rash. [] Back: No tenderness, no CVA tenderness. [] Extremities: No tenderness, no cyanosis, no clubbing, ROM intact, no edema. [] Neurologic: Alert and oriented X 3, normal motor function, normal sensory function, no focal deficits noted. [] Psychologic: Affect normal, judgement normal, mood normal. [] EKG EKG [] Radiology/Procedures Radiology/Procedures [] Course & Med Decision Making Course & Med Decision Making Pertinent Labs and Imaging studies reviewed. (See chart for details) ED course: Patient arrived, was placed in bed, and tolerated exam well. Pelvic exam was performed with coal and ash supervisor. heart tones were found to be 145. Consultation was made with Dr. Gauthier who accepted the patient for transfer to [facility] since there are no INSTRUMENTATION ENGINEER capabilities nor monitoring capabilities for at [facility]. Patient was amenable to transfer. Medical decision making: Concern for possible premature delivery given the bleeding patient experienced. Transferring her to higher level of care.[] Dragon Disclaimer Dragon Disclaimer This electronic medical record was generated, in whole or in part, using a voice recognition dictation system. Departure Departure: Impression: Primary Impression: Vaginal bleeding during Disposition: 05 TRANSFER OTHER Condition: IMPROVED Referrals: HENRRY STEWART JR, MD (PCP) MARS FLOWERS DO Jun 19, 2019 21:03
[2019-06-19 21:45] LABS: BASO % 0 % (0-3); EOS # 0.1 x10^3/uL (0.0-0.7); EOS % 1 % (0-3); HEMATOCRIT 36.3 % (36.0-47.0); HEMOGLOBIN 11.4 g/dL (12.0-15.5); LYMPH # 1.3 x10^3/uL (1.0-4.8); LYMPH % 15 % (24-48); MEAN CORPUSCULAR HEMOGLOBIN 26 pg (25-35); MEAN CORPUSCULAR HGB CONC 32 g/dL (31-37); MEAN CORPUSCULAR VOLUME 81 fL (79-100); MONO # 0.5 x10^3/uL (0.0-1.1); MONO % 6 % (0-9); NEUT # 6.8 x10^3uL (1.8-7.7); NEUT % 77 % (31-73); PLATELET COUNT 272 x10^3/uL (140-400); RED BLOOD COUNT 4.46 x10^6/uL (3.50-5.40); RED CELL DISTRIBUTION WIDTH 15.3 % (11.5-14.5); WHITE BLOOD COUNT 8.7 x10^3/uL (4.0-11.0)
== END 2019-06-19 22:35 | disposition short-term general hospital (02) ==
LOC: ER 20:46
DX: O46.93 Antepartum hemorrhage, unspecified, third trimester (principal); O23.43 Unspecified infection of urinary tract in pregnancy, third trimester; O99.333 Smoking (tobacco) complicating pregnancy, third trimester; Z3A.34 34 weeks gestation of pregnancy
CPT/HCPCS: 36415; 85025; 99285; J7040

== ENCOUNTER 2020-10-05 17:36 | Emergency (ER) | payer OTHER ==
[~2020-10-05] VITALS: Ht 149.9 cm; Wt 86.7 kg
[~2020-10-05 17:36] MED LIST changes: -LIDO15SO2 MM; +LIDO20SO10 MM
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
[2020-10-05] MEDS ORDERED: HYDROcodone/APAP 5/325MG 1 TAB TABLET PO ONE (18:45)
[2020-10-05] MEDS ORDERED: NAPROXEN 500 MG TABLET PO ONE (18:45)
[2020-10-05] MEDS ORDERED: HYDROcodone/APAP 5/325MG 1 TAB TABLET ONE (18:48)
[2020-10-05] MEDS ORDERED: NAPROXEN 500 MG TABLET ONE (18:49)
[2020-10-05 19:00] VITALS: BP 126/82
== END 2020-10-05 19:00 | disposition home or self-care (01) ==
LOC: ER 17:36
DX: G89.11 Acute pain due to trauma (principal); M25.561 Pain in right knee; M54.5 Low back pain; M54.2 Cervicalgia; F17.210 Nicotine dependence, cigarettes, uncomplicated; Z87.442 Personal history of urinary calculi; Z98.890 Other specified postprocedural states; V49.9XXA Car occupant (driver) (passenger) injured in unspecified traffic accident, initial encounter; Y93.89 Activity, other specified; Y92.413 State road as the place of occurrence of the external cause; Y99.8 Other external cause status
CPT/HCPCS: 72125; 73562; 99284

== ENCOUNTER 2020-12-09 14:51 | Emergency (ER) | payer OTHER ==
[~2020-12-09] VITALS: Ht 149.9 cm; Wt 86.6 kg
--- NOTE | 2020-12-09 15:15 | PHYS DOC ---
Past History Past Medical History: No Pertinent History, Kidney Stones Additional Past Medical Histor: Kidney stones X 4 Past Surgical History: Additional Past Surgical Histo: oral surgery. Smoking: Cigarettes Alcohol Use: None Drug Use: None General Adult EDM: Chief Complaint: FLANK PAIN HPI: HPI: Patient is a 30-year-old female who presents with lower abdominal pain, right flank pain started yesterday. States the pain feels like a kidney stone, which she has had 3 times since 2018. Denies taking anything at home for the pain. Patient denies fevers, nausea, vomiting, diarrhea, dysuria or frequency. Review of Systems: Review of Systems: Constitutional: Denies fever or chills Eyes: Denies change in visual acuity HENT: Denies nasal congestion or sore throat Respiratory: Denies cough or shortness of breath Cardiovascular: Denies chest pain or edema GI: Reports right lower abdominal pain, denies nausea, vomiting, bloody stools or diarrhea : Denies dysuria Musculoskeletal: Denies back pain or joint pain Integument: Denies rash Neurologic: Denies headache, focal weakness or sensory changes Endocrine: Denies polyuria or polydipsia Lymphatic: Denies swollen glands Psychiatric: Denies depression or anxiety Allergies: Allergies: Allergies Coded Allergies Type Severity Reaction Last Updated Verified No Known Drug Allergies 12/05/13 No Physical Exam: PE: Constitutional: Well developed, well nourished, no acute distress, non-toxic appearance. [] HENT: Normocephalic, atraumatic, bilateral external ears normal, oropharynx moist, no oral exudates, nose normal. [] Eyes: PERRLA, EOMI, conjunctiva normal, no discharge. [] Neck: Normal range of motion, no tenderness, supple, no stridor. [] Cardiovascular:Heart rate regular rhythm, no murmur [] Lungs & Thorax: Bilateral breath sounds clear to auscultation [] Abdomen: Bowel sounds normal, soft, no tenderness, no masses, no pulsatile masses. [] Skin: Warm, dry, no erythema, no rash. [] Back: No tenderness, right-sided CVA tenderness. [] Extremities: No tenderness, no cyanosis, no clubbing, ROM intact, no edema. [] Neurologic: Alert and oriented X 3, normal motor function, normal sensory function, no focal deficits noted. [] Psychologic: Affect normal, judgement normal, mood normal. [] Current Patient Data: Vital Signs: Vital Signs Date Time Temp Pulse Resp B/P (MAP) Pulse Ox O2 Delivery O2 Flow Rate FiO2 12/09/20 14:55 98.5 98 18 142/81 (101) 100 EKG: EKG: [] Radiology/Procedures: Radiology/Procedures: []CT abdomen pelvis without contrast dated 12/09/2020. No comparison available. Clinical data indication: Abdominal pain. TECHNIQUE: Contiguous axial imaging the M pelvis performed without the administration of IV or oral contrast. One or more of the following individualized dose reduction techniques were utilized for this examination: 1. Automated exposure control 2. Adjustment of the mA and/or kV according to patient size 3. Use of iterative reconstruction technique. FINDINGS: Limited images of lung bases are clear. Heart size within normal limits. No pleural or pericardial effusion. Solid abdominal viscera not well evaluated in the absence of contrast maternal. No apparent attenuation abnormality of the liver or spleen. Pancreas, adrenal glands, gallbladder unremarkable. There are multiple small calcific stones along the calyceal margins of both kidneys, largest of which measures about 6 mm at the left kidney lower pole. No evidence of ureteral stone or hydronephrosis. Unopacified GI tract normal in caliber and contour. No focal bowel wall thickening. No inflammatory changes in the mesentery. No ascites or lymphadenopathy. Appendix is partially visualized and within normal limits in caliber. Abdominal aorta normal in caliber. Images of pelvis show nondistended urinary bladder. Suspected mild diffuse bladd er wall thickening. Uterus and adnexa are unremarkable. No free fluid or pelvic lymphadenopathy. Bone windows show no acute findings. IMPRESSION: 1. Bilateral nephrolithiasis, nonobstructive. 2. Mild diffuse wall thickening of the urinary bladder, nonspecific. Consider acute or chronic cystitis. Electronically signed by: Anjel Tyler MD (12/09/2020 3:45 PM) [id number] DICTATED AND SIGNED BY: ANJEL TYLER MD DATE: 12/09/20 1541 CC: ELIE OROZCO APRN; EDMUNDO SAENZ ~MTH0 0 Heart Score: Risk Factors: Risk Factors: DM, Current or recent (<one month) smoker, HTN, HLP, family history of CAD, obesity. Risk Scores: Score 0 - 3: 2.5% MACE over next 6 weeks - Discharge Home Score 4 - 6: 20.3% MACE over next 6 weeks - Admit for Clinical Observation Score 7 - 10: 72.7% MACE over next 6 weeks - Early Invasive Strategies Course & Med Decision Making: Course & Med Decision Making Pertinent Labs and Imaging studies reviewed. (See chart for details) []Patient is a 6-year-old female who presents with lower abdominal pain, right flank pain. States the pain feels like a kidney stone, which she has had 3 times since 2018. Patient denies fevers, nausea, vomiting, diarrhea, dysuria or frequency. CT abdomen pelvis ordered to rule out kidney stone. UA to rule out infection. Toradol, Zofran, fluids administered. Will reassess pain. 1558-CT abdomen pelvis without contrast-. Bilateral nephrolithiasis, nonobstructive.Mild diffuse wall thickening of the urinary bladder, nonspecific. Consider acute or chronic cystitis. 1600- Pain 05/30. Morphine give for pain control, UA negative, WBC negative for infection. Will DC home with flomax and zofran. Patient needs follow up with PCP for further evaluation. Dragon Disclaimer: [employer] Disclaimer: This electronic medical record was generated, in whole or in part, using a voice recognition dictation system. Departure Departure: Impression: Primary Impression: Kidney stone Disposition: 01 DC HOME SELF CARE/HOMELESS Condition: IMPROVED Referrals: EDMUNDO SAENZ (PCP) Patient Instructions: Diet for Kidney Stones, Kidney Stones, [id number] Additional Instructions: You were seen in the ED for abdominal pain and right sided flank pain. CT of your abdomen does show a kidney stone. I have prescribed you Flomax to help pass the stone and also Zofran for nausea. You can take ibuprofen at home for pain relief. Follow up with your PCP for further evaluation. If your symptoms worsen or you have further concerns, please return to the ED. EMERGENCY DEPARTMENT GENERAL DISCHARGE INSTRUCTIONS Thank you for coming to [facility] (ED) today and trusting us with you care. We trust that you had a positivie experience in our Emergency Department. If you wish to speak to the department management, you may call the director at [phone]. YOUR FOLLOW UP INSTRUCTIONS ARE FOLLOWS: 1. Do you have a private Doctor? If you do not have a private doctor, please ask for a resource list of physicians or clinics that may be able to assist you with follow up care. 2. The Emergency Physician has interpreted your x-rays. The X-Ray specialist will also review them. If there is a change in the findings, you will be notified in 48 h ours when at all possible. 3. A lab test or culture has been done, your results will be reviewed and you will be notified if you need a change in treatment. ADDITIONAL INSTRUCTIONS AND INFORMATION: 1. Your care today has been supervised by a physician who is specially trained in emergency care. Many problems require more than one evaluation for a complete diagnosis and treatment. We recommend that you schedule your follow up appointment as recommended to ensure complete treatment of you illness or injury. If you are unable to obtain follow up care and continue to have a problem, or if your condition worsens, we recommend that you return to the ED. 2. We are not able to safely determine your condition over the phone nor are we able to give sound medical advice over the phone. For these safety reasons, if you call for medical advice we will ask you to come to the ED for further evaluation. 3. If you have any questions regarding these discharge instructions please call the ED at [phone]. SAFETY INFORMATION: In the interest of safety, wellness, and injury prevention; we encourage you to wear your sealbelt, if you smoke; quite smoking, and we encourage family to use a protective helmet for bicycling and other sporting events that present an increased risk for head injury. IF YOUR SYMPTOMS WORSEN OR NEW SYMPTOMS DEVELOP, OR YOU HAVE CONCERNS ABOUT YOUR CONDITION; OR IF YOUR CONDITION WORSENS WHILE YOU ARE WAITING FOR YOUR FOLLOW UP APPOINTMENT; EITHER CONTACT YOUR PRIMARY CARE DOCTOR, THE PHYSICIAN WHOSE NAME AND NUMBER YOU WERE GIVEN, OR RETURN TO THE ED IMMEDIATELY. Scripts Hydrocodone Bit/Acetaminophen (HYDROCODONE-APAP 5-325 ) 1 Each Tablet 1 TAB PO PRN Q6HRS PRN for PAIN for 3 Days, #12 TAB 0 Refills Prov: ELIE OROZCO APRN 12/09/20 Ondansetron (ONDANSETRON ODT) 4 Mg Tab.rapdis 1 TAB PO PRN Q6-8HRS PRN for NAUSEA/VOMITING, #16 TAB 0 Refills Prov: ELIE OROZCO APRN 12/09/20 Tamsulosin Hcl (FLOMAX) 0.4 Mg Cap.er.24h 1 CAP PO DAILY for kidney stone for 14 Days, #14 CAP 0 Refills Prov: ELIE OROZCO APRN 12/09/20 ELIE OROZCO APRN Dec 09, 2020 15:15
[2020-12-09] MEDS: ONDANSETRON PF 4 MG/2 ML VIAL. IVP ONE (15:17)
[2020-12-09] MEDS: IV NORMAL SALINE 1,000ML 1,000 ML IV ONE (15:17)
[2020-12-09] MEDS: KETOROLAC 15 MG/ML VIAL. IVP ONE (15:19)
[2020-12-09 15:23] LABS: BASO % 0 % (0-3); EOS # 0.3 x10^3/uL (0.0-0.7); EOS % 2 % (0-3); HEMATOCRIT 36.1 % (36.0-47.0); HEMOGLOBIN 11.6 g/dL (12.0-15.5); LYMPH # 2.7 x10^3/uL (1.0-4.8); LYMPH % 25 % (24-48); MEAN CORPUSCULAR HEMOGLOBIN 26 pg (25-35); MEAN CORPUSCULAR HGB CONC 32 g/dL (31-37); MEAN CORPUSCULAR VOLUME 80 fL (79-100); MONO # 0.8 x10^3/uL (0.0-1.1); MONO % 7 % (0-9); NEUT # 7.3 x10^3uL (1.8-7.7); NEUT % 66 % (31-73); PLATELET COUNT 352 x10^3/uL (140-400); RED CELL DISTRIBUTION WIDTH 14.1 % (11.5-14.5); WHITE BLOOD COUNT 11.1 x10^3/uL (4.0-11.0)
[2020-12-09 15:25] LABS: BILIRUBIN,URINE NEG (NEG); CLARITY,URINE CLEAR
[2020-12-09 15:26] LABS: BACTERIA,URINE 0 /HPF (0-FEW); NITRITE,URINE NEG (NEG); UROBILINOGEN,URINE 0.2 mg/dL (0.2 mg/dL); WBC,URINE OCC /HPF (0-4)
[2020-12-09 15:32] LABS: COLOR,URINE AMBER
[2020-12-09 15:33] LABS: GLUCOSE,URINE NEG (NEG)
[2020-12-09 15:34] LABS: CALCIUM 9.1 mg/dL (8.5-10.1); CREATININE 0.8 mg/dL (0.6-1.0); GFR 100.6; POTASSIUM 3.4 mmol/L (3.5-5.1)
[2020-12-09 15:36] LABS: SQUAMOUS EPITHELIAL CELL,UR MOD /LPF
--- NOTE | 2020-12-09 15:47 | RAD ---
CT abdomen pelvis without contrast dated 12/09/2020. No comparison available. Clinical data indication: Abdominal pain. TECHNIQUE: Contiguous axial imaging the M pelvis performed without the administration of IV or oral contrast. One or more of the following individualized dose reduction techniques were utilized for this examinat ion: 1. Automated exposure control 2. Adjustment of the mA and/or kV according to patient size 3. Use of iterative reconstruction technique. FINDINGS: Limited images of lung bases are clear. Heart size within normal limits. No pleural or pericardial ef fusion. Solid abdominal viscera not well evaluated in the absence of contrast maternal. No apparent attenuati on abnormality of the liver or spleen. Pancreas, adrenal glands, gallbladder unremarkable. There are multiple small calcific stones along the calyceal margins of both kidneys, largest of which measures about 6 mm at the left kidney lower pole. No evidence of ureteral stone or hydronephrosis. Unopacified GI tract normal in caliber and contour. No focal bowel wall thickening. No inflammatory c hanges in the mesentery. No ascites or lymphadenopathy. Appendix is partially visualized and within n ormal limits in caliber. Abdominal aorta normal in caliber. Images of pelvis show nondistended urinary bladder. Suspected mild diffuse bladder wall thickening. U terus and adnexa are unremarkable. No free fluid or pelvic lymphadenopathy. Bone windows show no acute findings. IMPRESSION: 1. Bilateral nephrolithiasis, nonobstructive. 2. Mild diffuse wall thickening of the urinary bladder, nonspecific. Consider acute or chronic cystit is. Electronically signed by: Yoel Tyler MD (12/09/2020 3:45 PM) [id number]
[2020-12-09] MEDS ORDERED: TAMS0.4C97 PO (16:02)
[2020-12-09] MEDS ORDERED: ONDA4TAB12 PO (16:05)
[2020-12-09] MEDS: MORPHINE SULFATE 4 MG/ML DISP.SYRIN. IV ONE (16:10)
--- NOTE | 2020-12-09 16:12 | EKG ---
[address] [address] Test Date: 2020-12-09 Test Time: 15:35:53 Pat Name: KADE FLORES Department: Room: Gender: F Comparative Sociology Professor: EARLENE : 1990 Requested By: ELIE OROZCO Order Number: [id number] Reading MD: Measurements Intervals [place] Rate: 99 P: 59 NC: 162 QRS: 44 QRSD: 94 T: 24 QT: 352 QTc: 457 Interpretive Statements SINUS RHYTHM R-S TRANSITION ZONE IN V LEADS DISPLACED TO THE LEFT OTHERWISE NORMAL ECG RI6.02 No previous ECG available for comparison
[2020-12-09] MEDS ORDERED: HYDR-2155 PO (16:17)
[2020-12-09 16:25] VITALS: BP 113/62
[2020-12-09] MEDS: TAMSULOSIN 0.4 MG CAP.ER.24H. PO ONE (16:30)
== END 2020-12-09 16:45 | disposition home or self-care (01) ==
LOC: ER 14:51
DX: N20.0 Calculus of kidney (principal); F17.210 Nicotine dependence, cigarettes, uncomplicated; Z98.890 Other specified postprocedural states; Z87.442 Personal history of urinary calculi
CPT/HCPCS: 36415; 74176; 80048; 81001; 81025; 85025; 93005; 96361; 96374; 96375; 99285; J1885; J2270; J2405; J7030

== ENCOUNTER 2021-11-12 04:55 | Emergency (ER) | payer OTHER ==
[~2021-11-12] VITALS: Ht 149.9 cm; Wt 90.0 kg
[~2021-11-12 04:55] MED LIST changes: +HYDR-2155 PO; +ONDA4TAB12 PO; +TAMS0.4C97 PO
--- NOTE | 2021-11-12 04:58 | PHYS DOC ---
Past History Past Medical History: No Pertinent History, Kidney Stones Additional Past Medical Histor: Kidney stones X 4 (DEMETRIUS DICKENS MD) Past Surgical History: Additional Past Surgical Histo: oral surgery. (DEMETRIUS DICKENS MD) Smoking: Cigarettes Alcohol Use: None Drug Use: None (DEMETRIUS DICKENS MD) General Adult HPI: HPI: ". I hurt all over.. aching.. headache.. fever.. ..chills. feels like I got the flu... coughing.. but nothing coming up..." Patient is a 31 year old female who presents with above hx and complaints of headache, decreased appetite, nausea, chills, fever, malaise, arthralgia, myalgia, and fatigue. Patient stated symptoms started on Tuesday. And persisted in the last 24 hours. Patient has not gotten flu vaccination this season. Patient has not gotten Covid vaccination. Patient denies any travel. Patient denies any specific ill contacts. Patient denies any history of immunosuppression. Patient normally follows with Dr. Angela for care. (DEMETRIUS DICKENS MD) Review of Systems: Review of Systems: Constitutional: Subjective complaints of fever Eyes: Denies change in visual acuity HENT: Denies nasal congestion or sore throat Respiratory: Complains of cough and wheezing Cardiovascular: Denies chest pain or edema GI: Denies abdominal pain, nausea, vomiting, bloody stools or diarrhea : Denies dysuria Musculoskeletal: Complains of myalgia and arthralgia Integument: Denies rash Neurologic: Complains of headache,. Denies focal weakness or sensory changes Endocrine: Denies polyuria or polydipsia Lymphatic: Denies swollen glands Psychiatric: Denies depression or anxiety (DEMETRIUS DICKENS MD) Family History: Family History: Noncontributory (DEMETRIUS DICKENS MD) Current Medications: Current Meds: See nursing for home meds (DEMETRIUS DICKENS MD) Allergies: Allergies: Allergies Coded Allergies Type Severity Reaction Last Updated Verified No Known Drug Allergies 12/05/13 No (DEMETRIUS DICKENS MD) Physical Exam: PE: Constitutional: moderate acute distress, non-toxic appearance. [] HENT: Normocephalic, atraumatic, bilateral external ears normal, oropharynx moist, no oral exudates, nose normal. [] Eyes: PERRLA, EOMI, conjunctiva normal, no discharge. [] Neck: Normal range of motion, no tenderness, supple, no stridor. [] Cardiovascular:Heart rate regular rhythm, no murmur [] Lungs & Thorax: Bilateral breath sounds equal at apex with scattered wheezes on auscultation [] Abdomen: Bowel sounds normal, soft, no tenderness, no masses, no pulsatile masses. Obese. Skin: Warm, dry, no erythema, no rash. [] Back: No tenderness, no CVA tenderness. [] Extremities: No tenderness, no cyanosis, no clubbing, ROM intact, no edema. No cording appreciated. Neurologic: Alert and oriented X 3, normal motor function, normal sensory function, no focal deficits noted. [] Psychologic: Affect normal, judgement normal, mood normal. [] (DEMETRIUS DICKENS MD) EKG: EKG: [] (DEMETRIUS DICKENS MD) Radiology/Procedures: Radiology/Procedures: [] (DEMETRIUS DICKENS MD) Radiology/Procedures: [place] [address] IMAGING REPORT Signed PATIENT: KADE FLORES ACCOUNT: [id number] : 1990 LOCATION: ER AGE: 31 SEX: F EXAM STATUS: REG ER ORD. PHYSICIAN: DEMETRIUS DICKENS MD REASON: cough , fever, PROCEDURE: CHEST AP ONLY Exam Date: 11/12/2021 5:40 AM XR CHEST 1V Indication: Reason: cough , fever, / Spl. Instructions: / History: . FINDINGS/ IMPRESSION: There are mild hazy lung opacities in the right lung base suspicious for developing infiltrate/pneumonia. Follow-up chest radiograph to resolution are recommended. Small right pleural effusion is not excluded. No pneumothorax. The cardiac silhouette and pulmonary vasculature are within normal limits. The visualized osseous structures are intact. Electronically signed by: Faye Ruiz MD (11/12/2021 6:56 AM) [id number] DICTATED AND SIGNED BY: FAYE RUIZ MD DATE: 11/12/21 0655 CC: SYDNEY PARRISH MD; DEMETRIUS DICKENS MD; PATRICIA ANGELA MD ~MTH0 0 (SYDNEY PARRISH MD) Heart Score: Risk Factors: Risk Factors: DM, Current or recent (<one month) smoker, HTN, HLP, family history of CAD, obesity. Risk Scores: Score 0 - 3: 2.5% MACE over next 6 weeks - Discharge Home Score 4 - 6: 20.3% MACE over next 6 weeks - Admit for Clinical Observation Score 7 - 10: 72.7% MACE over next 6 weeks - Early Invasive Strategies (DEMETRIUS DICKENS MD) C/O Chest Pain: N/A (SYDNEY PARRISH MD) Course & Med Decision Making: Course & Med Decision Making Pertinent Labs and Imaging studies reviewed. (See chart for details) [] (DEMETRIUS DICKENS MD) Dragon Disclaimer: Dragon Disclaimer: This electronic medical record was generated, in whole or in part, using a voice recognition dictation system. (DEMETRIUS DICKENS MD) Departure Departure: Impression: Primary Impression: Person under investigation for severe acute respiratory syndrome coronavirus 2 (SARS-CoV-2) infection Additional Impression: Pneumonia Disposition: 01 HOME / SELF CARE / HOMELESS Condition: STABLE Referrals: PATRICIA ANGELA MD (PCP) Patient Instructions: Pneumonia, Adult Additional Instructions: You have been tested for or diagnosed with COVID-19. It is an infection caused by a new type of coronavirus. COVID-19 will cause cold-like or mild flu symptoms in most. It can cause more severe symptoms like problems breathing in some. There is no treatment for COVID-19. The body will clear the infection over time. Self-care will help to ease discomfort. Steps to Take: Self-Care Rest as needed. Healthy habits may help you feel better. Steps include: Choose healthy foods including fruits and vegetables. Drink water throughout the day. Get plenty of sleep each night. If you smoke, try to quit. It may ease breathing. Avoid alcohol. Keep Others Healthy The virus can spread to others. Droplets are released every time you sneeze or cough. The droplets can get into the mouth, nose, or eyes of people near you and lead to infection. To lower the chances of spreading COVID-19 to others: Stay at home until your doctor has said it is safe to leave. If you tested positive this will mean staying isolated until both of the following are true: At least 7 days have passed since the start of illness. You are free of fever for at least 72 hours without the use of medicine. During this time: - Avoid public areas, events, or transportation. Do not return to work or school until your doctor has said it is safe to do so. - Call ahead if you need to go to a medical center. Let them know you may have COVID-19. It will help them guide you where to go. They may also ask you to wear a facemask when you come to the office. - If you call for emergency medical services, let them know you may have COVID- 19. While at home: - Try to avoid close contact with others. Stay about 6 feet away. - If possible, spend most of your time in a separate room from others. - Use a face mask if you will be in close contact with others such as sharing a room or vehicle. - Have someone wipe down common surfaces in the home. Use household enterprise infrastructure architect every day on areas like doorknobs, counters, or sinks. - Cough or sneeze into a tissue. Throw the tissue away right after use. If a tissue is not available, cough or sneeze into your elbow. - Wash your hands often. Wash them after sneezing or coughing. Use soap and water and wash for at least 20 seconds. Alcohol based hand spice cleaner can be used if soap and water is not available. - Do not prepare food for others. Avoid sharing personal items like forks, spoons, or toothbrushes. - Avoid close contact with pets while you are sick. There is no evidence of the virus passing to pets. This is a safety step until more is known about this virus. Isolation can be frustrating. Social interaction can help. Keep in touch with friends and family through phone and tech options. You can still interact with others in your home, just keep a safe distance of about 6 feet. Follow-up: Your doctors office will check in with you to see if there are any changes in your health. You may be asked to keep track of symptoms to share with them. They will also let you know when you are clear to be in public again. Problems to Look Out For: Contact your doctor if your recovery is not going as you expect. Get emergency care if you have problems such as: - Trouble breathing - Nonstop chest pain or pressure - Changes in awareness, confusion, or problems waking - Lips or face have bluish color - Worsening of symptoms If you think you have an emergency, call for emergency medical services right away. As taken from [facility] Doxycycline Hyclate (DOXYCYCLINE HYCLATE) 100 Mg Tablet.dr 1 TAB PO BID for antibiotic for 7 Days, #14 TAB Prov: SYDNEY PARRISH MD 11/12/21 Benzonatate (BENZONATATE) 200 Mg Capsule 1 CAP PO PRN TID PRN for cough for 7 Days, #21 CAP 0 Refills Prov: SYDNEY PARRISH MD 11/12/21 Dragon Disclaimer This chart was dictated in whole or in part using Voice Recognition software in a busy, high-work load, and often noisy Emergency Department environment. It may contain unintended and wholly unrecognized errors or omissions. (DEMETRIUS DICKENS MD) Dragon Disclaimer This chart was dictated in whole or in part using Voice Recognition software in a busy, high-work load, and often noisy Emergency Department environment. It may contain unintended and wholly unrecognized errors or omissions. (DEMETRIUS DICKENS MD) DEMETRIUS DICKENS MD Nov 12, 2021 04:58 SYDNEY PARRISH MD Nov 12, 2021 07:11
[2021-11-12] MEDS ORDERED: ALBUTEROL SULFATE 8GM INHALER. INH ONE (05:30)
[2021-11-12 05:51] LABS: BARBITURATES NEG (NEG); BENZODIAZEPINES NEG (NEG); CANNABINOIDS NEG (NEG); COCAINE NEG (NEG); METHADONE NEG (NEG); OPIATES NEG (NEG); PHENCYCLIDINE NEG (NEG)
[2021-11-12 05:54] VITALS: BP 159/92
[2021-11-12 05:54] LABS: BACTERIA,URINE FEW /HPF (0-FEW); BILIRUBIN,URINE NEG (NEG); CLARITY,URINE CLEAR; COLOR,URINE YELLOW; GLUCOSE,URINE NEG (NEG); NITRITE,URINE NEG (NEG); RBC,URINE 0 /HPF (0-2); SQUAMOUS EPITHELIAL CELL,UR MOD /LPF; WBC,URINE OCC /HPF (0-4)
[2021-11-12 05:55] LABS: AMPHETAMINE/METHAMPHETAMINE NEG (NEG)
[2021-11-12 06:11] LABS: INFLUENZA A PATIENT NEGATIVE (NEGATIVE); INFLUENZA B PATIENT NEGATIVE (NEGATIVE)
--- NOTE | 2021-11-12 06:58 | RAD ---
Exam Date: 11/12/2021 5:40 AM XR CHEST 1V Indication: Reason: cough , fever, / Spl. Instructions: / History: . FINDINGS/ IMPRESSION: There are mild hazy lung opacities in the right lung base suspicious for developing infiltrate/pneumo marcelle. Follow-up chest radiograph to resolution are recommended. Small right pleural effusion is not excluded. No pneumothorax. The cardiac silhouette and pulmonary vasculature are within normal limits. The visualized osseous structures are intact. Electronically signed by: Chente Ruiz MD (11/12/2021 6:56 AM) [id number]
[2021-11-12] MEDS ORDERED: BENZ200C47 PO (07:10)
[2021-11-12] MEDS ORDERED: DOXY-96 PO (07:10)
[2021-11-12] MEDS ORDERED: KETOROLAC 30 MG/ML VIAL. IM ONE (08:00)
== END 2021-11-12 08:10 | disposition home or self-care (01) ==
LOC: ER 04:55
DX: J18.9 Pneumonia, unspecified organism (principal); F17.210 Nicotine dependence, cigarettes, uncomplicated; Z87.442 Personal history of urinary calculi; Z20.822 Contact with and (suspected) exposure to COVID-19
CPT/HCPCS: 36415; 71045; 80307; 81001; 81025; 87426; 87804; 94640; 96372; 99284; C9803; J1885; U0003; 94664